=== PATIENT | female | born 1970 | race Caucasian/White ===

== ENCOUNTER 2021-04-12 16:49 | Outpatient (CLI) | payer OTHER | END 2021-04-12 23:59 | disposition home or self-care (01) | LOC: LAB.N 16:49 | PROVIDERS: ATTEND Family Medicine | DX: L03.90 Cellulitis, unspecified (principal); L02.91 Cutaneous abscess, unspecified | CPT/HCPCS: 87070; 87205 ==

== ENCOUNTER 2022-07-29 22:30 | Emergency (ER) | payer BC, OTHER ==
[2022-07-30] MEDS ORDERED: IBUPROFEN 600 MG TABLET PO STA (01:55)
[2022-07-30] MEDS ORDERED: ACETAMINOPHEN 325 MG TABLET PO STA (01:55)
[2022-07-30] MEDS ORDERED: ALPRAZolam 0.25 MG TABLET PO STA (01:55)
--- NOTE | 2022-07-30 01:59 | ED Physician Documentation ---
History of Present Illness - Stated complaint Stated Complaint: HIGH BP,BOJORQUEZ - Chief complaint Chief Complaint: Neuro - History obtained from History obtained from: Patient - Additonal information Additional information: The patient comes to the emergency department chief complaint of headache and high blood pressure. She states that she woke up with a headache and when she went to take her blood pressure, she found it to be 170/90 at home. The patient states she does not have a diagnosis of high blood pressure and usually has low blood pressure, in the 90s over 70s. She states that when she gets up to 130 for her systolic reading, she gets a headache. The patient states that she has been under a lot of stress lately because of some medical work-up she has been having for problems with her ovaries. The patient also states that she has been experiencing frustrations with the medical system because she moved here 2 years ago from [place] but kept her primary doctor in [place]. She states that she was seeing her primary doctor via telemedicine for some time after she moved but has now decided to pursue getting a primary doctor. The patient was very upset that she waited a month to see the doctor and then the appointment was canceled for some unknown reason. The patient does note that there primary doctor here got her in for a blood draw and will see her on August 12. The patient is not sure if all of this is causing her elevated blood pressure. However, the patient states that when her Blood pressure reading came back elevated, she began to have palpitations and nausea. The patient felt anxious and kept taking her blood pressure which remained elevated. Finally, her significant other gave her a dose of his own lisinopril 5 mg and the patient's blood pressure has improved since. No other complaints at this time. The patient states that she had 1 other episode of elevated blood pressure back at the beginning of the year, but this resolved on its own. No chest pain or shortness of breath with today's episode. No neurologic deficits. No other complaints at this time. She states that now she feels much better but still has just a dull headache. Review of Systems Ten Systems: 10 systems reviewed and negative Constitutional: reports: Reviewed and negative Eyes: reports: Reviewed and negative Ears: reports: Reviewed and negative Nose: reports: Reviewed and negative Throat: reports: Reviewed and negative Cardiac: reports: Reviewed and negative Respiratory: reports: Reviewed and negative GI: reports: Reviewed and negative : reports: Reviewed and negative Skin: reports: Reviewed and negative Musculoskeletal: reports: Reviewed and negative Neurologic: reports: Headache Psychiatric: reports: Anxiety Endocrine: reports: Reviewed and negative Immunocompromised: reports: Reviewed and negative PD PAST MEDICAL HISTORY - Past Medical History Past Medical History: Yes Endocrine/Autoimmune: HyPOthyroidism - Past Surgical History Past Surgical History: No - Present Medications Home Medications: Ambulatory Orders Medication Instructions Recorded Confirmed Levothyroxine Sodium [Levoxyl] 100 mcg PO DAILY 07/29/22 07/29/22 - Allergies Allergies/Adverse Reactions: Allergies Allergy/AdvReac Type Severity Reaction Status Date / Time No Known Drug Allergies Allergy Verified 07/29/22 22:41 - Social History Does the pt smoke?: No Smoking Status: Never smoker Does the pt drink ETOH?: No Does the pt have substance abuse?: No - Immunizations Immunizations are current?: Yes - POLST Patient has POLST: No PD ED PE NORMAL - Vitals Vital signs reviewed: Yes - General General: Alert and oriented X 3, No acute distress, Well developed/nourished - HEENT HEENT: Atraumatic, PERRL, EOMI, Moist mucous membranes - Neck Neck: Supple, no meningeal sign, No bony TTP - Cardiac Cardiac: RRR, No murmur, Strong equal pulses - Respiratory Respiratory: No respiratory distress, Clear bilaterally - Abdomen Abdomen: Soft, Non tender, Non distended - Derm Derm: Normal color, Warm and dry, No rash - Extremities Extremities: No deformity, No edema, No calf tenderness / cord - Neuro Neuro: Alert and oriented X 3, sustainability coach 2-12 intact, Normal speech - Psych Psych: Normal mood, Normal affect Results - Vitals Vitals: Vital Signs - 24 hr 07/29/22 07/30/22 07/30/22 22:38 00:02 01:32 Temperature 36.9 C Heart Rate 56 L Respiratory 16 Rate Blood Pressure 150/82 H 141/88 H 133/86 H O2 Saturation 100 07/30/22 02:08 Temperature 36.3 C L Heart Rate 77 Respiratory 16 Rate Blood Pressure 133/92 H O2 Saturation 99 Oxygen O2 Source Room air PD MEDICAL DECISION MAKING - ED course Complexity details: considered differential, d/w patient, d/w family ED course: I discussed with the patient that her blood pressure is now normalized here in the emergency department. I cannot make a diagnosis of hypertension based on a single days worth of blood pressure readings, particularly since the patient states she checks her blood pressure regularly and that it is usually fairly low. As such, I am not going to prescribe her any medication for her blood pressure. We have discussed medication anxiety and stress, and I have given her Tylenol and ibuprofen for her headache. We have discussed the need for follow-up and keeping a log of her blood pressures until she does see her primary care physician, so that she and her doctor can have an informed discussion about her blood pressure. We have discussed the usual indications for return. Departure - Departure Disposition: Home, Self Care Clinical Impression: Elevated blood pressure reading Headache Qualifiers: Headache type: unspecified Headache chronicity pattern: acute headache Intractability: not intractable Qualified Code(s): R51.9 - Headache, unspecified Condition: Stable Instructions: ED Headache Tension, ED Hypertension Poss Comments: Your blood pressure has normalized here in the emergency department. Given that you have not previously had high blood pressure, it is not clear whether this is just a temporary, situationally-related blood pressure elevation, or whether this is indicative of the onset of a chronic high blood pressure condition. As such, more time is needed to determine whether your blood pressures are chronically elevated or not. Because of this, we will not start you on blood pr essure medication at this time. It is important that when you see your doctor on August 12, that you can show her the blood pressures that you are having on a daily basis. You should check in the morning when you first get up, at night before you go to bed, and sometime in the middle of the day. Try to check when you are as relaxed as possible to get a more accurate representation of your baseline blood pressure. If you develop a severe headache, or chest pain with shortness of breath, please return to the emergency department. Otherwise, be sure you are drinking plenty of fluids, especially water, and take ibuprofen and Tylenol if needed for headaches. Forms: Activity restrictions Discharge Date/Time: 07/30/22 02:14
[2022-07-30 02:14] VITALS: BP 133/92
== END 2022-07-30 02:14 | disposition home or self-care (01) ==
LOC: ED 22:30
DX: R51.9 Headache, unspecified (principal); R03.0 Elevated blood-pressure reading, without diagnosis of hypertension
CPT/HCPCS: 99282; 99284; A9270